=== PATIENT | male | born 1960 | race Caucasian/White ===

== ENCOUNTER → 2022-07-08 | Outpatient (CLI) | payer BC ==
--- NOTE | 2022-07-08 16:55 | CT ---
The wire and wire were EXAMINATION TYPE: CT abdomen pelvis w con DATE OF EXAM: 07/08/2022 COMPARISON: None HISTORY: Blood in urine several days last week. No complaints of pain. CT DLP: 1480.10 mGycm CONTRAST: CT scan of the abdomen and pelvis is performed with Oral Contrast and with IV Contrast, patient injec emily with 100 mL of Isovue 300. FINDINGS: LUNG BASES-: No visible nodule. No infiltrate. LIVER/GB: No calcified gallstones. No space occupying hepatic lesion. Biliary tree is of normal ca liber. PANCREAS: No inflammation. No distinct mass. SPLEEN: No splenic enlargement. No lesion seen. ADRENALS: No nodule. No thickening. KIDNEYS/BLADDER: No hydronephrosis. No nephrolithiasis. No distinct solid renal mass. Simple cyst right kidney measuring 1.2 cm.. There is a 1.5 x 1.3 cm fluid attenuation structure midline anterior urinary bladder which could reflect a urachal cyst remnant or diverticulum. There is stranding about this structure and infection is not excluded. If this in fact reflects a ureteral cyst adenocarcinom a is not excluded. Urology consult recommended. There Urinary bladder grossly unremarkable. BOWEL: Normal appendix. Normal bowel caliber. No inflammation. GENITAL ORGANS: No gross abnormality. LYMPH NODES: No greater than 1cm abdominal or pelvic lymph nodes are appreciated. AORTA: No significant abnormality. OSSEOUS STRUCTURES: No significant abnormality is seen. OTHER: No significant additional abnormality is seen. IMPRESSION: 1. There is a 1.5 x 1.3 cm fluid attenuation structure midline anterior urinary bladder which could reflect a urachal cyst remnant or diverticulum. There is stranding about this structure and infection is not excluded. If this in fact reflects a ureteral cyst adenocarcinoma is not excluded. Urology co nsult recommended.
== END | disposition home or self-care (01) ==
LOC: RADCTMAIN 14:16
PROVIDERS: ATTEND Family Medicine
DX: R31.9 Hematuria, unspecified (principal); R93.41 Abnormal radiologic findings on diagnostic imaging of renal pelvis, ureter, or bladder
CPT/HCPCS: 74177; Q9967

== ENCOUNTER 2022-09-16 06:07 | Day surgery (SDC) | payer BC ==
[2022-09-09 17:02] LABS: Basophils % (A) 0 %; Eosinophils # (A) 0.1 k/uL (0-0.7); Eosinophils % (A) 2 %; Lymphocytes % (A) 24 %; MCHC 33.4 g/dL (31.0-37.0); MCV 89.8 fL (80.0-100.0); Mean Platelet Volume 7.1; Monocytes # (A) 0.5 k/uL (0-1.0); Monocytes % (A) 6 %; Neutrophils # (A) 5.5 k/uL (1.3-7.7); Neutrophils % (A) 65 %; Platelet Count 321 k/uL (150-450); RBC 5.34 m/uL (4.30-5.90); RDW 12.9 % (11.5-15.5); WBC 8.3 k/uL (3.8-10.6)
[2022-09-09 17:11] LABS: African American GFR (CKD) >90 (>60 ml/min/1.73 sqM); Anion Gap 8 mmol/L; Blood Urea Nitrogen 18 mg/dL (9-20); Calcium 9.5 mg/dL (8.4-10.2); Carbon Dioxide 28 mmol/L (22-30); Chloride 100 mmol/L (98-107); Glucose 100 mg/dL (74-99); Non-African American GFR(CKD) 88 (>60 ml/min/1.73 sqM); Potassium 4.7 mmol/L (3.5-5.1); Sodium 136 mmol/L (137-145)
[2022-09-10 09:59] VITALS: BMI 32.6
--- NOTE | 2022-09-12 21:18 | P.GSHP ---
History of Present Illness H&P Date: 09/12/22 Chief Complaint: Gross hematuria The patient is a 62-year-old white male with an unremarkable urologic history who experienced gross painless hematuria in June 2022. Computed tomography scan showed a 1.2 cm right renal cyst, small bladder diverticulum, and bladder calculi. Cystoscopy showed multiple small bladder calculi along with a diverticulum at the bladder dome which contained mucosal changes. He now comes for cystoscopy with cystolithotripsy to remove the bladder calculi, along with bladder biopsies. - Constitutional Constitutional: Denies chills, Denies fever - Genitourinary (Male) Genitourinary: Reports hematuria, Denies dysuria, Denies flank pain Past Medical History Additional Past Medical History / Comment(s): KIDNEY STONES History of Any Multi-Drug Resistant Organisms: None Reported Past Surgical History: Orthopedic Surgery Additional Past Surgical History / Comment(s): ROTATOR CUFF REPAIR ( UNSURE WHAT SIDE) Past Anesthesia/Blood Transfusion Reactions: No Reported Reaction Smoking Status: Former smoker - Past Family History Mother Family Medical History: No Reported History Medications and Allergies Home Medications Medication Instructions Recorded Confirmed Type No Known Home Medications 09/10/22 09/10/22 History Allergies Allergy/AdvReac Type Severity Reaction Status Date / Time No Known Allergies Allergy Verified 09/10/22 09:54 Surgical - Exam - General well developed, well nourished, no distress - Neck no masses, trachea midline - Respiratory normal respiratory effort - Abdomen Abdomen: soft, non tender, no guarding, no rigid, no rebound - Genitourinary normal penis with no external lesions, testicles non-tender - Rectum Rectum: normal sphincter tone, no masses, other (prostate moderately enlarged and smooth) - Psychiatric oriented to time, oriented to person, oriented to place, speech is normal, memory intact Results - Labs 09/09/22 16:34 09/09/22 16:34 - Imaging CT scan - abdomen: report reviewed, image reviewed Assessment and Plan (1) Neoplasm of unspecified behavior of bladder Status: Acute Code(s): D49.4 - NEOPLASM OF UNSPECIFIED BEHAVIOR OF BLADDER SNOMED Code(s): 117412439 (2) Gross hematuria Status: Acute Code(s): R31.0 - GROSS HEMATURIA SNOMED Code(s): 117437131 (3) Calculus in bladder Status: Acute Code(s): N21.0 - CALCULUS IN BLADDER SNOMED Code(s): 40424452 Plan: Cystoscopy, cystolithotripsy, removal of all bladder calculi, biopsy of bladder mucosal changes with fulguration of adjacent urothelium. It was explained to the patient that a formal transurethral resection would not be performed given the location of the mucosal changes within a diverticulum. The patient has been made aware of potential risks, which include anesthesia, bleeding, infection, postoperative urinary retention, and bladder perforation.
[~2022-09-16 06:07] MED LIST: DEXAMETHASONE SOD PHOSPHATE 4 MG/ML 1 ML VIAL IV ONE; LACTATED RINGERS 1,000 ML IV SCH; LIDOCAINE 1% (10MG/ML) FOR IV START INTRADERMA PRN; ONDANSETRON 4 MG/2 ML VIAL IVP ONE; droPERidol 5 MG/2 ML VIAL IVP ONE
[2022-09-16] MEDS ORDERED: HYDROmorphone 0.5 MG/0.5 ML SYRINGE IVP PRN (07:00)
[2022-09-16] MEDS ORDERED: LIDOCAINE 2% INJ 20 MG/ML (2 ML VIAL) ONE (07:24)
[2022-09-16] MEDS ORDERED: PROPOFOL 10 MG/ML 20 ML VIAL IV ONE (07:24)
[2022-09-16] MEDS ORDERED: fentaNYL (PF) 50 MCG/ML 2 ML AMP ONE (07:24)
[2022-09-16] MEDS ORDERED: MIDAZOLAM 2 MG/2 ML VIAL ONE (07:24)
[2022-09-16] MEDS ORDERED: KETOROLAC 30 MG/ML 1 ML VIAL ONE (07:24)
[2022-09-16] MEDS ORDERED: LACTATED RINGERS 1,000 ML IV ONE (08:32)
--- NOTE | 2022-09-16 08:45 | P.OP ---
Date of Procedure: 09/16/22 Preoperative Diagnosis: Gross hematuria, bladder lesion, bladder calculi Postoperative Diagnosis: Same Procedure(s) Performed: Cystoscopy with cystolitholapaxy, bladder biopsies, fulguration of bladder diverticulum. Anesthesia: GETA Surgeon: Juan Daniel Amanda Estimated Blood Loss (ml): 5 IV fluids (ml): 800 Pathology: other (Bladder calculi, sent for chemical analysis) Condition: stable Disposition: PACU Indications for Procedure: The patient is a 62-year-old white male with an unremarkable urologic history who experienced gross painless hematuria in June [address]22. CT scan showed a 1.2 cm right renal cyst, small bladder diverticulum, and bladder calculi. Cystoscopy showed multiple small bladder calculi along with a diverticulum at the bladder dome which contained mucosal changes. He now comes for cystoscopy with cystolithotripsy to remove the bladder calculi, along with bladder biopsies. Operative Findings: Bladder diverticulum just cephalad to the left ureteral orifice, containing multiple calculi measuring up to 1.5 cm in diameter. Left bladder dome bladder diverticulum, measuring 2-3 cm in diameter, with cobblestone mucosal changes. Description of Procedure: The patient was taken to the operating room and placed in the dorsal lithotomy position, with legs supported in Devante stirrups. The external genitalia was prepped and draped sterilely. The 30 lens was used to introduce the 21-Yemeni Orellana cystoscopic sheath through the urethra and into the bladder under direct vision. The urethra appeared normal. The prostate showed evidence of lateral lobe enlargement and a high median bar. The bladder was examined in its entirety. The ureteral orifices appeared normal. A bladder diverticulum was seen just cephalad to the left ureteral orifice, measuring 2-3 cm in size and containing multiple calculi up to 1.5 cm in diameter. A second bladder diverticulum was seen at the left bladder dome, of similar size. The mucosa within it had a cobblestone appearance. Using the 1000 micron Holmium laser probe, lithotripsy was performed. Lithotripsy was continued until all calculus fragments could be removed. Once this was completed, the bladder was inspected. There was no active bleeding, and no evidence of bladder perforation. Next, biopsy forceps were used to obtain approximately 6 biopsies from the left bladder dome diverticulum. An 8-Yemeni Bugbee electrode was then used to thoroughly fulgurate the entire diverticulum. Hemostasis at this time was excellent, and there was no evidence of a bladder perforation. The cystoscope was removed, and an 18-Yemeni Roach catheter was placed. The return was essentially clear. The patient tolerated the procedure well was taken to the recovery room in stable condition.
[2022-09-16 08:54] VITALS: RESP 16; TEMP 97
[2022-09-16 09:42] VITALS: BP 122/84; PULSE 52
== END 2022-09-16 10:08 | disposition home or self-care (01) ==
LOC: OR 06:07
PROVIDERS: ATTEND Urology
DX: D30.3 Benign neoplasm of bladder (principal); N21.0 Calculus in bladder; N32.3 Diverticulum of bladder; N40.0 Benign prostatic hyperplasia without lower urinary tract symptoms; Z87.442 Personal history of urinary calculi; Z87.891 Personal history of nicotine dependence
CPT/HCPCS: 52317; 52224; 88305; 80048; 85025; 82365; J2250; J1100; J0690; J2405; J3010; J1885; J2704; J2001